=== PATIENT | male | born 1975 | race Asian ===

== ENCOUNTER 2019-10-23 18:09 | Emergency (ER) | payer BC ==
[~2019-10-23] VITALS: Ht 182.9 cm; Wt 83.9 kg
[2019-10-23 18:18] VITALS: BP_SYST 129
--- NOTE | 2019-10-23 18:18 | NUR ---
Patient triaged and placed in waiting room. VSS and patient appears in no acute distress at this time. Accompanied by self, awaiting available bed, and MD notified of need for MSE.
--- NOTE | 2019-10-23 20:03 | NUR ---
Patient to ER bed 06 to gown for evaluation. Side rails up. Report given to WILLIAM Velasquez
--- NOTE | 2019-10-23 20:05 | NUR ---
Pt brought in by self. Pt awake, alert, oriented x4. Pt states that he has had cough and cold like symptoms for approx 4 weeks without relief. Pt states that land he takes deep inspiratory breaths or exhales fully, he feels "crackling" in his airway, and it "feels like phlegm or liquid". Pt denies chest pain, nausea, vomiting, diarrhea, shortness of breath. Pt denies any other medical compliant at this time. No acute distress, resting in ed bed. VSS
--- NOTE | 2019-10-23 20:25 | NUR ---
ER Dr. Conteh at bedside examining patient.
[2019-10-23] MEDS ORDERED: IPRATROPIUM/ALBUTEROL SULFATE 3 ML AMPUL.NEB (DUONEB) INH ONE (20:30)
--- NOTE | 2019-10-23 20:45 | NUR ---
RT bedside adminisering breathing treatment
[2019-10-23 22:00] VITALS: BP_SYST 122
--- NOTE | 2019-10-23 22:00 | NUR ---
Patient given written and verbal discharge instructions and verbalizes understanding. ER MD discussed with patient the results and treatment provided. Patient in stable condition. ID arm band removed. No IV Rx of Zithromax given. Patient educated on pain management and to follow up with PMD. Pain Scale 0/10. Opportunity for questions provided and answered. Medication side effect fact sheet provided.
== END 2019-10-23 22:00 | disposition home or self-care (01) ==
LOC: SED 18:09
DX: J20.9 Acute bronchitis, unspecified (principal); M94.0 Chondrocostal junction syndrome [Tietze]
CPT/HCPCS: 71045; 86710; 94640; 99284; J7620; 36415

== ENCOUNTER 2020-01-08 12:20 | Emergency (ER) | payer BC, SELFPAY ==
[~2020-01-08] VITALS: Ht 182.9 cm; Wt 81.6 kg
[2020-01-08 12:25] VITALS: BP_SYST 119
[2020-01-08 12:51] VITALS: BP_SYST 119
== END 2020-01-08 12:50 | disposition home or self-care (01) ==
LOC: SED 12:20 → EEVIPCON 12:20 → SED 12:50
DX: Z20.828 Contact with and (suspected) exposure to other viral communicable diseases (principal)
CPT/HCPCS: 99283; U0002